=== PATIENT | female | born 1980 | race Native Hawaiian/Other Pacific Islander ===

== ENCOUNTER 2016-06-24 01:14 | Emergency (ER) | payer OTHER ==
[~2016-06-24] VITALS: Ht 160 cm; Wt 97.5 kg
[2016-06-24] MEDS ORDERED: LEXAPRO10 MG OR (01:22)
[2016-06-24] MEDS ORDERED: QUET100T2 PO (01:24)
== END 2016-06-24 02:05 | disposition home or self-care (01) ==
LOC: ED 01:14
DX: S60.221A Contusion of right hand, initial encounter (principal); W22.09XA Striking against other stationary object, initial encounter; Y92.098 Other place in other non-institutional residence as the place of occurrence of the external cause
CPT/HCPCS: 99283